=== PATIENT | female | born 1950 | race Caucasian/White ===

== ENCOUNTER → 2019-09-03 | Outpatient (CLI) | payer MEDICARE, OTHER ==
--- NOTE | 2019-09-03 15:32 | Diagnostic Imaging Report ---
PROCEDURE: X-RAY MODIFIED BARIUM SWALLOW COMPARISON: None. INDICATION: Aspiration Radiation Details: Fluoroscopy time: 2.2 minutes Cumulative dose: 9.1 mGy DISCUSSION: Fluoroscopic examination was performed in conjunction with speech pathology during swallowing a variety of thin and thick liquid consistencies. Provided images demonstrate laryngeal penetration but no aspiration. CONCLUSION: Modified barium swallow demonstrating laryngeal penetration but no aspiration. Please refer to the speech pathology report for further details. Signed by: Katia Rosa MD on 09/03/2019 3:29 PM
== END ==
LOC: DX 09:15
PROVIDERS: ATTEND Internal Medicine Gastroenterology
DX: R13.14 Dysphagia, pharyngoesophageal phase (principal)
CPT/HCPCS: 74230

== ENCOUNTER → 2019-09-09 | Outpatient (CLI) | payer MEDICARE, OTHER ==
--- NOTE | 2019-09-09 14:49 | Diagnostic Imaging Report ---
Esophagram and Upper GI with air-contrast, 09/09/2019. History: Dysphagia. Discussion: The patient was given air crystals, thick barium, and thin barium to drink in upright and prone positions. Multiple images of the esophagus, stomach, and duodenum were obtained. Exam was limited due to patient limited mobility. Fluoro time: 0.15 min. Dose: 104 mGy (HYACINTH) A gastric lap band is present to the GE junction in normal position. Lap band lumen measures 11 mm with prompt passage of contrast into the stomach. Mild tertiary contractions are present in the mid and distal esophagus. Esophagus is otherwise normal in appearance without evidence of mucosal regularity or stricture. There is no evidence of a hiatal hernia. No reflux was visualized during the course of the examination. The gastric fundus, body, and antrum are normal in appearance. The duodenal bulb and c-loop are normal in normal appearance. There is no evidence of duodenitis or extrinsic compression. IMPRESSION: 1. Gastric lap band in normal position without evidence of obstruction or hernia. 2. Mild tertiary contractions of the esophagus without evidence of esophagitis. 3. Normal appearance of the stomach and proximal small bowel. Signed by: Prince Cortes on 09/09/2019 2:45 PM
== END ==
LOC: DX 11:05
PROVIDERS: ATTEND Internal Medicine Gastroenterology
DX: R13.14 Dysphagia, pharyngoesophageal phase (principal)
CPT/HCPCS: 74220; 74241